=== PATIENT | male | born 1945 | race Caucasian/White ===

== ENCOUNTER 2016-08-04 11:24 | Inpatient (IN) | payer BC, OTHER ==
[~2016-08-04] VITALS: Ht 175.3 cm; Wt 99.6 kg
[~2016-08-04 11:24] MED LIST: ALLEGRA ALLERG180 MG PO; ALTACE10 MG PO; ASPIRIN325 MG PO; CILOSTAZOL50 MG PO; CRESTOR5 MG PO; FISH OIL 1,2001 EAC4 PO; FUROSEMIDE20 MG PO; MAGNESIUM OXID200 MG PO; METFORMIN HCL500 MG PO; NITROSTAT0.4 MG SL; PLAVIX75 MG PO; PROTONIX20 MG PO; PROTONIX40 MG PO; TOPROL XL100 MG PO; TOPROL XL25 MG PO; TOPROL XL50 MG PO
[2016-08-04 13:21] LABS: POINT-OF-CARE METER ID UU13113696
[2016-08-04 15:25] LABS: POINT-OF-CARE METER ID UU13113819
[2016-08-04 18:30] VITALS: BP 167/83
[2016-08-04 19:16] VITALS: BP 155/89
[2016-08-04 20:49] LABS: POINT-OF-CARE METER ID UU14174216
[2016-08-05 00:24] VITALS: BP 124/67
[2016-08-05 04:00] VITALS: BP 115/74
[2016-08-05 07:05] VITALS: BP 139/86
[2016-08-05 07:06] LABS: BASOPHIL COUNT 0.1 K/uL (0-0.1); EOSINOPHIL (%) 5.8 % (0-5); EOSINOPHIL COUNT 0.4 K/uL (0-0.3); IMMATURE GRANULOCYTE (%) 0.1 % (0.0-0.7); LYMPHOCYTE COUNT 3.2 K/uL (1.0-2.8); MCH 32.8 PG (29.0-34.0); MCHC 34.4 G/DL (30.0-36.0); MCV 95.6 FL (86-99); MEAN PLAT.VOLUME 8.8 uM^3 (9.0-12.4); MONOCYTE (%) 8.7 % (3-12); MONOCYTE COUNT 0.7 K/uL (0-0.8); NEUTROPHIL (%) 42.3 % (45-76); NEUTROPHIL COUNT 3.2 K/uL (1.8-6.4); PLATELET COUNT 182 K/uL (156-360); RBC DIS.WIDTH-CV 13.3 % (11.8-14.6); RBC DIS.WIDTH-SD 46.6 % (39-53); RED BLOOD COUNT 4.08 M/uL (4.00-5.50); WHITE BLOOD COUNT 7.6 K/uL (4.1-10.2)
[2016-08-05 07:24] LABS: POINT-OF-CARE METER ID UU14174216; POINT-OF-CARE USER ID NUTSLF44
[2016-08-05 07:32] LABS: ANION GAP 10 MEQ/L (2-14); CHLORIDE 101 MEQ/L (99-109); GFR ESTIMATE (CALCULATED) > 59 mL/min/; GLUCOSE 110 mg/dL (70-99); POTASSIUM 4.4 MEQ/L (3.7-5.4); SAMPLE HEMOLYSIS CHECK 0; SAMPLE ICTERIC CHECK 0; SAMPLE LIPEMIA CHECK 0; SODIUM 134 MEQ/L (136-147); UREA NITROGEN (BUN) 12 mg/dL (9-23)
== END 2016-08-05 10:30 | disposition home or self-care (01) | DRG 247 ==
LOC: CATH 11:24 → 2SOUTH 15:45 → 4EAST 18:05
PROVIDERS: Internal Medicine Cardiovascular Disease
DX: I25.10 Atherosclerotic heart disease of native coronary artery without angina pectoris (principal); E11.9 Type 2 diabetes mellitus without complications; I10 Essential (primary) hypertension; E78.5 Hyperlipidemia, unspecified; F17.210 Nicotine dependence, cigarettes, uncomplicated; I65.22 Occlusion and stenosis of left carotid artery; I25.82 Chronic total occlusion of coronary artery; E66.9 Obesity, unspecified; J30.2 Other seasonal allergic rhinitis; Z79.02 Long term (current) use of antithrombotics/antiplatelets; Z98.61 Coronary angioplasty status; Z88.5 Allergy status to narcotic agent; Z68.32 Body mass index [BMI] 32.0-32.9, adult
CPT/HCPCS: 36415; 80048; 82948; 85025; 85347; 85610; 85730; 93005; C1725; C1769; C1874; C1887; J0583; J1644; J1815; J2250; J3010; J7050

== ENCOUNTER 2016-08-28 07:48 | Observation (INO) | payer BC, OTHER ==
[~2016-08-28] VITALS: Ht 175.3 cm; Wt 95.4 kg
[2016-08-28 08:28] LABS: HEMATOCRIT 39.3 % (38.0-50.0); MCH 33.6 PG (29.0-34.0); MCHC 36.1 G/DL (30.0-36.0); MCV 93.1 FL (86-99); MEAN PLAT.VOLUME 8.2 uM^3 (9.0-12.4); PLATELET COUNT 199 K/uL (156-360); RBC DIS.WIDTH-CV 12.3 % (11.8-14.6); RBC DIS.WIDTH-SD 40.5 % (39-53); RED BLOOD COUNT 4.22 M/uL (4.00-5.50); WHITE BLOOD COUNT 7.7 K/uL (4.1-10.2)
[2016-08-28 08:54] LABS: TROP-I INTERPRETATION NEGATIVE; TROPONIN-I < 0.01 ng/mL (0.0-0.30)
[2016-08-28 08:57] LABS: CHLORIDE 94 mEq/L (99-109); POTASSIUM 4.4 mEq/L (3.7-5.4); SODIUM 128 mEq/L (136-147)
[2016-08-28 08:59] LABS: GLUCOSE 148 mg/dL (70-99)
[2016-08-28 09:00] LABS: ANION GAP 12 MEQ/L (2-14)
[2016-08-28 09:01] LABS: TOTAL BILIRUBIN 0.5 mg/dL (0.0-1.0)
[2016-08-28 09:03] LABS: ALKALINE PHOSPHATASE 59 IU/L (3-129); GFR ESTIMATE (CALCULATED) > 59 mL/min/
[2016-08-28 09:04] LABS: UREA NITROGEN (BUN) 11 mg/dL (9-23)
[2016-08-28] MEDS ORDERED: PANTOPRAZOLE SO40 MG PO (11:16)
[2016-08-28 11:36] VITALS: BP 190/88
[2016-08-28 11:56] VITALS: BP 119/79
[2016-08-28 12:42] LABS: POINT-OF-CARE METER ID UU14162513
[2016-08-28 15:18] LABS: HDL CHOLESTEROL 36 MG/DL (Desirable>=40); LDL CHOLESTEROL 64 mg/dL (Desirable<100); NON-HDL CHOLESTEROL 103 mg/dL (Desirable<160); TOTAL CHOLESTEROL 139 mg/dL (Desirable<200); TRIGLYCERIDES 193 MG/DL (Normal: <150)
[2016-08-28 15:25] LABS: TROP-I INTERPRETATION NEGATIVE; TROPONIN-I < 0.01 ng/mL (0.0-0.30)
[2016-08-28 16:00] VITALS: BP 126/76
[2016-08-28 20:00] VITALS: BP 145/82
[2016-08-28 21:17] LABS: TROP-I INTERPRETATION NEGATIVE; TROPONIN-I < 0.01 ng/mL (0.0-0.30)
[2016-08-28 21:24] LABS: POINT-OF-CARE METER ID UU14162513
[2016-08-28 23:39] VITALS: BP 101/62
[2016-08-29 03:50] VITALS: BP 113/67
[2016-08-29 08:45] VITALS: BP 140/95
[2016-08-29 08:55] LABS: POINT-OF-CARE METER ID UU14162513
[2016-08-29 12:10] LABS: POINT-OF-CARE METER ID UU13113831
[2016-08-29 12:18] VITALS: BP 111/60
[2016-08-29] MEDS ORDERED: METOPROLOL SUCC50 MG PO (13:46)
== END 2016-08-29 14:11 | disposition home or self-care (01) ==
LOC: EME 07:48 → 5WEST 09:46 → EDOF 09:46 → 5WEST 11:19
PROVIDERS: Hospitalist; Nurse Practitioner Family; Physician Assistant Medical
DX: R07.89 Other chest pain (principal); R06.02 Shortness of breath; R42 Dizziness and giddiness; I25.10 Atherosclerotic heart disease of native coronary artery without angina pectoris; Z95.5 Presence of coronary angioplasty implant and graft; I73.9 Peripheral vascular disease, unspecified; E78.5 Hyperlipidemia, unspecified; I10 Essential (primary) hypertension; Z79.82 Long term (current) use of aspirin; Z79.899 Other long term (current) drug therapy
CPT/HCPCS: 71020; 80053; 80061; 82948; 84484; 85027; 93005; 99281; 99285; G0378; J1644; J1815; J7030

== ENCOUNTER 2016-09-05 11:43 | Day surgery (SDC) | payer BC, OTHER ==
[~2016-09-05] VITALS: Ht 175.3 cm; Wt 97.1 kg
[~2016-09-05 11:43] MED LIST changes: +METOPROLOL SUCC50 MG PO; +PANTOPRAZOLE SO40 MG PO
[2016-09-05 12:36] LABS: POINT-OF-CARE METER ID UU13113696
== END 2016-09-05 17:33 | disposition home or self-care (01) ==
LOC: CATH 11:43
PROVIDERS: Surgery
DX: I70.212 Atherosclerosis of native arteries of extremities with intermittent claudication, left leg (principal); I70.92 Chronic total occlusion of artery of the extremities; I10 Essential (primary) hypertension; I25.10 Atherosclerotic heart disease of native coronary artery without angina pectoris
CPT/HCPCS: 82948; C1725; C1760; C1769; C1894; J1644; J2250; J3010; S0020

== ENCOUNTER → 2017-05-30 | Outpatient (CLI) | payer BC, MEDICARE | END | disposition home or self-care (01) | LOC: CDC 08:53 | DX: Z01.810 Encounter for preprocedural cardiovascular examination (principal); I45.10 Unspecified right bundle-branch block; I44.4 Left anterior fascicular block; R94.31 Abnormal electrocardiogram [ECG] [EKG] | CPT/HCPCS: 93000 ==

== ENCOUNTER 2018-03-04 20:53 | Observation (INO) | payer BC, OTHER ==
[~2018-03-04] VITALS: Ht 175.3 cm; Wt 97.8 kg
[2018-03-04 22:19] LABS: BASOPHIL (%) 1.1 % (0-1); BASOPHIL COUNT 0.1 K/uL (0-0.1); EOSINOPHIL COUNT 0.4 K/uL (0-0.3); HEMATOCRIT 40.4 % (38.0-50.0); HEMOGLOBIN 14.5 G/DL (12.5-16.6); IMMATURE GRANULOCYTE (%) 0.6 % (0.0-0.7); LYMPHOCYTE (%) 42.5 % (15-42); LYMPHOCYTE COUNT 3.8 K/uL (1.0-2.8); MCH 33.3 PG (29.0-34.0); MCHC 35.9 G/DL (30.0-36.0); MCV 92.7 FL (86-99); MONOCYTE (%) 9.6 % (3-12); MONOCYTE COUNT 0.9 K/uL (0-0.8); NEUTROPHIL (%) 41.2 % (45-76); NEUTROPHIL COUNT 3.7 K/uL (1.8-6.4); PLATELET COUNT 200 K/uL (156-360); RBC DIS.WIDTH-CV 12.8 % (11.8-14.6); RBC DIS.WIDTH-SD 43.9 % (39-53); RED BLOOD COUNT 4.36 M/uL (4.00-5.50); WHITE BLOOD COUNT 8.9 K/uL (4.1-10.2)
[2018-03-04 22:23] LABS: INTER. NORMALIZED RATIO 1.1
[2018-03-04 22:33] LABS: ALBUMIN 4.4 g/dL (3.2-4.8); CHLORIDE 100 mEq/L (99-109); POTASSIUM 4.2 mEq/L (3.7-5.4); SODIUM 136 mEq/L (136-147)
[2018-03-04 22:36] LABS: GLUCOSE 119 mg/dL (70-99); TOTAL PROTEIN 7.4 g/dL (6.4-8.3)
[2018-03-04 22:38] LABS: TOTAL BILIRUBIN 0.4 mg/dL (0.0-1.0)
[2018-03-04 22:39] LABS: ALKALINE PHOSPHATASE 76 IU/L (3-129)
[2018-03-04 22:40] LABS: CREATININE 0.9 mg/dL (0.6-1.3); GFR ESTIMATE (CALCULATED) > 59 mL/min/ (58.99-99999)
[2018-03-04 22:41] LABS: AST (GOT) 28 IU/L (2-34); DIRECT BILIRUBIN 0.1 mg/dL (0.0-0.3); UREA NITROGEN (BUN) 9 mg/dL (9-23)
[2018-03-04 22:43] LABS: ALT (GPT) 39 IU/L (3-49); LIPASE 16 U/L (1.0-51.0)
[2018-03-04 22:45] LABS: TROP-I INTERPRETATION NEGATIVE; TROPONIN-I < 0.01 ng/mL (0.0-0.30)
[2018-03-04] MEDS ORDERED: LO-DOSE ASPIRIN81 M1 PO (23:02)
[2018-03-04] MEDS ORDERED: LASIX20 MG PO (23:02)
[2018-03-04] MEDS ORDERED: NORVASC2.5 MG PO (23:03)
[2018-03-05 00:04] VITALS: BP 181/107
[2018-03-05 03:46] VITALS: BP 148/72
[2018-03-05 05:53] LABS: TROP-I INTERPRETATION NEGATIVE; TROPONIN-I < 0.01 ng/mL (0.0-0.30)
[2018-03-05 05:57] LABS: HDL CHOLESTEROL 35 MG/DL (Desirable>=40); LDL CHOLESTEROL 50 mg/dL (Desirable<100); NON-HDL CHOLESTEROL 99 mg/dL (Desirable<160); TOTAL CHOLESTEROL 134 mg/dL (Desirable<200); TRIGLYCERIDES 244 MG/DL (Normal: <150)
[2018-03-05 07:26] VITALS: BP 129/80
[2018-03-05 10:50] LABS: HEMOGLOBIN A1c (GLYCOHEMOGLOB) 6.5 % (Below 5.7)
[2018-03-05 11:01] LABS: TROP-I INTERPRETATION NEGATIVE; TROPONIN-I < 0.01 ng/mL (0.0-0.30)
[2018-03-05 11:36] VITALS: BP 126/57
[2018-03-05] MEDS ORDERED: DOCUSATE SODIU100 MG PO (13:25)
== END 2018-03-05 14:18 | disposition home or self-care (01) ==
LOC: EME 20:53 → EDOF 22:51 → 4SOUTH 22:51 → EDOF 22:51 → ENRESERV 23:00 → 4SOUTH 23:43
PROVIDERS: Emergency Medicine; Hospitalist; Physician Assistant Medical
DX: R07.9 Chest pain, unspecified (principal); I25.10 Atherosclerotic heart disease of native coronary artery without angina pectoris; I25.82 Chronic total occlusion of coronary artery; Z95.5 Presence of coronary angioplasty implant and graft; I16.0 Hypertensive urgency; I10 Essential (primary) hypertension; E78.5 Hyperlipidemia, unspecified; R94.31 Abnormal electrocardiogram [ECG] [EKG]; F17.210 Nicotine dependence, cigarettes, uncomplicated; Z95.820 Peripheral vascular angioplasty status with implants and grafts; E11.51 Type 2 diabetes mellitus with diabetic peripheral angiopathy without gangrene; Z79.82 Long term (current) use of aspirin; Z79.02 Long term (current) use of antithrombotics/antiplatelets; Z79.899 Other long term (current) drug therapy; K59.00 Constipation, unspecified; R19.7 Diarrhea, unspecified; I65.22 Occlusion and stenosis of left carotid artery; Z86.19 Personal history of other infectious and parasitic diseases; Z82.49 Family history of ischemic heart disease and other diseases of the circulatory system
CPT/HCPCS: 71045; 80048; 80061; 80076; 82948; 83036; 83690; 83880; 84484; 85025; 85610; 93005; 99281; 99285; G0378; J0360; J1644